=== PATIENT | female | born 1980 | race Hispanic/Latino ===

== ENCOUNTER 2018-06-05 08:15 | Emergency (ER) | payer BC, OTHER ==
[2018-06-05 08:26] VITALS: BMI 35.4
[2018-06-05 08:41] VITALS: TEMP 98
--- NOTE | 2018-06-05 09:10 | ED PDOC ---
Arrival/HPI - General Chief Complaint: Dizziness/Lightheaded Historian: Patient - History of Present Illness Narrative History of Present Illness (Text): 06/05/18 09:06 Marilynn Barroso is a 38 year old female, with a past medical history of high grade lymphoma, who presents to the emergency department complaining of fluctuating dizziness since 05:30 this morning. Patient states dizziness is worsened by standing but is unchanged laying down or sitting up. Patient's dizziness has not resolved in the emergency department. Patient feels like "the room is spinning" but denies double vision. Patient also notes light nausea and loose bowel movement this morning with solid stool. Patient did not start chemotherapy and had port placed 3 days ago. Patient also notes emergency department is out of network with her insurance. Patient denies focal weakness, blurry vision, headache, abdominal pain, chest pain, vomiting, diarrhea, bloody stool, shortness of breath, fevers, chills, or any other complaints. Time/Duration: 4-6 hours Symptom Onset: Sudden Symptom Course: Other (fluctuating) Activities at Onset: Eating Context: Home Past Medical History - Provider Review Nursing Documentation Reviewed: Yes - Past History Past History: No Previous - Tetanus Immunization Tetanus Immunization: Unknown - Hematological/Oncological Hx Lymphoma: Yes (hodgkin's lymphoma) - Psychiatric Hx Depression: No Hx Emotional Abuse: No Hx Physical Abuse: No Hx Substance Use: No - Past Surgical History Past Surgical History: No Previous - Surgical History Other/Comment: R upper chest port placement - Anesthesia Hx Anesthesia: Yes Hx Anesthesia Reactions: No Hx Malignant Hyperthermia: No - Suicidal Assessment Feels Threatened In Home Enviroment: No Family/Social History - Physician Review Nursing Documentation Reviewed: Yes Family/Social History: Unknown Family HX Smoking Status: Never Smoked Hx Alcohol Use: Yes Frequency of alcohol use: Socially Hx Substance Use: No Hx Substance Use Treatment: No Allergies/Home Meds Allergies/Adverse Reactions: Allergies No Known Allergies Allergy (Verified 05/19/12 19:46) Review of Systems - Physician Review All systems were reviewed & negative as marked: Yes - Review of Systems Constitutional: absent: Fevers, Night Sweats Eyes: absent: Vision Changes (denies blurry vision) Respiratory: absent: SOB Cardiovascular: absent: Chest Pain Gastrointestinal: Nausea. absent: Abdominal Pain, Diarrhea, Vomiting, Hematochezia Neurological: Dizziness. absent: Headache, Focal Weakness Physical Exam Vital Signs Reviewed: Yes Vital Signs Temp Pulse Resp BP Pulse Ox 06/05/18 08:39 98.0 F 85 16 123/74 100 06/05/18 08:16 97.4 F L 82 18 124/73 100 Temperature: Afebrile Blood Pressure: Normal Pulse: Regular Respiratory Rate: Normal Appearance: Positive for: Well-Appearing, Non-Toxic, Comfortable Pain Distress: None Mental Status: Positive for: Alert and Oriented X 3 - Systems Exam Head: Present: Atraumatic, Normocephalic Pupils: Present: PERRL Extroacular Muscles: Present: EOMI, Other (left sided horizontal nystagmus) Conjunctiva: Present: Normal Mouth: Present: Moist Mucous Membranes Neck: Present: Normal Range of Motion Respiratory/Chest: Present: Clear to Auscultation, Good Air Exchange. No: Respiratory Distress, Accessory Muscle Use, Wheezes, Rales, Rhonchi Cardiovascular: Present: Regular Rate and Rhythm, Normal S1, S2. No: Murmurs, Rub, Gallop Abdomen: No: Tenderness, Distention, Peritoneal Signs Back: Present: Normal Inspection Upper Extremity: Present: Normal Inspection. No: Cyanosis, Edema Lower Extremity: Present: Normal Inspection. No: Edema Neurological: Present: GCS=15, CN II-XII Intact, Speech Normal, Motor Func Grossly Intact Skin: Present: Warm, Dry, Normal Color. No: Rashes Psychiatric: Present: Alert, Oriented x 3, Normal Insight, Normal Concentration Medical Decision Making ED Course and Treatment: 06/05/18 09:06 Impression: 38 year old female with past medical history of high grade lymphoma who presents to the emergency department with complaints of dizziness since 05:30 this morning. Differential Diagnosis included but are not limited to: --Orthostatic Hypotension --Vertigo(vestibular neuritis, BPPV) --Symptomatic anemia Plan: -- Labs -- EKG -- Antivert -- Reglan -- IV Fluids -- Urine Test -- Urinalysis -- Reassess and disposition Prior Visits: Notes and results from previous visits were reviewed. Progress Notes: 06/05/18 10:41 Labs reviewed with slight anemia, but no other outstanding electrolyte abn ormalities. Patient states she had one brief episode of dizzness prior to drifting off to sleep, but has been able to ambulate to the bathroom without difficulty. 06/05/18 11:21 Orthostatics performed and unremarkable with patient reports no continuing symptoms. She states she would like to go home. She is encouraged to follow up with her PCP and oncologist this week. She demonstrates understanding and will follow up. Scripts given and opportunity for questions answered. She is stable for discharge. - Lab Interpretations Lab Results: 06/05/18 09:15 06/05/18 09:15 Lab Results 06/05/18 09:15: Sodium 139, Potassium 4.5, Chloride 104, Carbon Dioxide 29, Anion Gap 10, BUN 12, Creatinine 0.5 L, Est GFR ( Amer) > 60, Est GFR (No n-Af Amer) > 60, Random Glucose 93, Calcium 9.0, Total Bilirubin 0.2, AST 9 L, ALT 14, Alkaline Phosphatase 78, Total Protein 6.9, Albumin 3.5, Globulin 3.4, Albumin/Globulin Ratio 1.0 L, Lipase 63 06/05/18 09:15: Urine Color Yellow, Urine Appearance Clear, Urine pH 6.5, Ur Specific [place] 1.010, Urine Protein Negative, Urine Glucose (UA) Negative, Urine Ketones Negative, Urine Blood Negative, Urine Nitrate Negative, Urine Bilirubin Negative, Urine Urobilinogen 0.2, Ur Leukocyte Esterase Negative 06/05/18 09:15: WBC 10.3, RBC 4.52, Hgb 11.4 L, Hct 36.4, MCV 80.5, MCH 25.2, MCHC 31.3, RDW 13.7, Plt Count 247, MPV 9.4, Neut % (Auto) 86.9 H, Lymph % (Auto) 7.3 L, [place] % (Auto) 3.5, Eos % (Auto) 2.1, Baso % (Auto) 0.2, Lymph # (Auto) 0.8 L, [place] # (Auto) 0.4, Eos # (Auto) 0.2, Baso # (Auto) 0.02, Absolute Neuts (auto) 8.92 H I have reviewed the lab results: Yes - EKG Interpretation EKG Interpretation (Text): 06/05/18 08:33 Reviewed EKG, shows: NSR at 78 BPM, No ST elevations, No T wave inversions. Interpreted by ED Physician: Yes Type: 12 lead EKG - Medication Orders Current Medication Orders: 06/05/18 10:37 Discontinued Medications Sodium Chloride (Sodium Chloride 0.9%) 1,000 mls @ 999 mls/hr IV .Q1H1M STA Stop: 06/05/18 10:17 Last Admin: 06/05/18 09:32 Dose: 999 mls/hr eMAR Start Stop Document 06/05/18 09:32 CLINICAL MEDICAL ASSISTANT (Rec: 06/05/18 09:32 [id number]) Intravenous Solution Start Date 06/05/18 Start Time 09:32 End Date 06/05/18 End time 10:32 Total Infusion Time 60 Meclizine HCl (Antivert) 25 mg PO STAT STA Stop: 06/05/18 09:18 Last Admin: 06/05/18 09:32 Dose: 25 mg Metoclopramide HCl (Reglan) 10 mg IVP STAT STA Stop: 06/05/18 09:18 Last Admin: 06/05/18 09:32 Dose: 10 mg IVP Administration Document 06/05/18 09:32 [facility] (Rec: 06/05/18 09:32 [id number]) Charges for Administration # of IVP Administrations 1 - Scribe Statement The provider has reviewed the documentation as recorded by the Scribe Jamaal Russell All medical record entries made by the Scribe were at my direction and personally dictated by me. I have reviewed the chart and agree that the record accurately reflects my personal performance of the history, physical exam, medical decision making, and the department course for this patient. I have also personally directed, reviewed, and agree with the discharge instructions and disposition. Disposition/Present on Arrival - Present on Arrival Any Indicators Present on Arrival: No History of DVT/PE: No History of Uncontrolled Diabetes: No Urinary Catheter: No History of Decub. Ulcer: No History Surgical Site Infection Following: None - Disposition Have Diagnosis and Disposition been Completed?: No Diagnosis: Dizziness Disposition: HOME/ ROUTINE Disposition Time: 11:26 Patient Plan: Discharge Patient Problems: Current Active Problems Problem Status Onset Dizziness Acute Condition: IMPROVED Discharge Instructions (ExitCare): Vertigo (a Type of Dizziness) (DC) Print Language: URUGUAYAN Additional Instructions: All medical record entries made by the Scribe were at my direction and personally dictated by me. I have reviewed the chart and agree that the record accurately reflects my personal performance of the history, physical exam, medical decision making, and the department course for this patient. I have also personally directed, reviewed, and agree with the discharge instructions and disposition. Please follow up with your PCP and oncologist this week. Please take medications as necessary Prescriptions: Meclizine [Antivert] 12.5 mg PO PRN PRN #12 tab PRN Reason: Dizziness Metoclopramide [Reglan] 10 mg PO PRN PRN #12 tab PRN Reason: Dizziness Referrals: Mo Humphrey MD [Staff Provider] - Follow up with primary Forms: [employer] (Albanian)
[2018-06-05] MEDS ORDERED: Sodium Chloride 0.9% 1,000 ML IV STA ×2 (09:17→10:41)
[2018-06-05 09:20] LABS: BASO # 0.02 K/mm3 (0.0-2.0); BASO % 0.2 % (0.0-3.0); EOS # 0.2 (0.0-0.7); EOS % 2.1 % (1.5-5.0); HEMOGLOBIN 11.4 g/dL (12.0-16.0); LYMPH # 0.8 (1.2-3.4); LYMPH % 7.3 % (22.0-35.0); MEAN CELL VOLUME 80.5 fl (80.0-105.0); MEAN CORPUSCULAR HEMOGLOBIN 25.2 pg (25.0-35.0); MEAN CORPUSCULAR HGB CONC 31.3 g/dl (31.0-37.0); MEAN PLATELET VOLUME 9.4 fl (7.0-11.0); MONO # 0.4 (0.1-0.6); MONO % 3.5 % (1.0-6.0); RBC 4.52 10^6/uL (3.5-6.1); RED CELL DISTRIBUTION WIDTH 13.7 % (11.5-14.5); WHITE BLOOD COUNT 10.3 10^3/uL (4.5-11.0)
[2018-06-05 09:28] LABS: PH,URINE 6.5 (4.7-8.0); URINE BILIRUBIN NEGATIVE (NEGATIVE); URINE BLOOD NEGATIVE (NEGATIVE); URINE GLUCOSE (UA) NEGATIVE (NEGATIVE); URINE LEUKOCYTE ESTERASE NEGATIVE Leu/uL (NEGATIVE); URINE PROTEIN NEGATIVE mg/dL (<30 mg/dL); URINE UROBILINOGEN 0.2 E.U./dL (<1 E.U./dL)
[2018-06-05 09:29] LABS: URINE APPEARANCE CLEAR (CLEAR); URINE COLOR YELLOW (YELLOW)
[2018-06-05 09:34] LABS: ALBUMIN 3.5 g/dL (3.0-4.8); ALT/SGPT 14 U/L (7-56); AST/SGOT 9 U/L (14-36); BLOOD UREA NITROGEN 12 mg/dL (7-21); GFR NON-AFRICAN AMERICAN > 60; LIPASE 63 U/L (23-300)
[2018-06-05 10:53] VITALS: RESP 18; O2SAT 99
[2018-06-05 11:21] LABS: B-TYPE NATRIURETIC PEPTIDE 160 pg/mL (0-450); TROPONIN I < 0.01 ng/mL
[2018-06-05 12:11] VITALS: BP 102/67; PULSE 82
--- NOTE | 2018-06-05 17:23 | CARD ---
APPROVED REPORT Date of service: 06/05/2018 EKG Measurement Heart [id number] <Conclusion> Normal sinus rhythm Normal ECG
== END 2018-06-05 12:10 | disposition home or self-care (01) ==
LOC: ED 08:15
DX: R42 Dizziness and giddiness (principal); Z85.71 Personal history of Hodgkin lymphoma
CPT/HCPCS: 80053; 81003; 81025; 83690; 83880; 84484; 85025; 85378; 93005; 96361; 96374; 99285; J2765; J7030